=== PATIENT | female | born 1995 | race African-American/Black ===

== ENCOUNTER 2023-04-04 11:42 | Emergency (ER) | payer BC ==
[~2023-04-04] VITALS: Ht 157.5 cm; Wt 86.1 kg
[2023-04-04] MEDS ORDERED: PYRIDOXINE HCL 50MG TABLET PO ONE (12:30)
[2023-04-04] MEDS ORDERED: ONDANSETRON HCL 4MG/2ML INJ IV ONE (12:30)
[2023-04-04] MEDS ORDERED: DEXT 5%/0.9% NACL 1,000 ML IV ONE (12:30)
[2023-04-04 13:26] LABS: BASOPHILS % 0.5 % (0.0-2.0); EOSINOPHILS % 0.8 % (0.0-5.0); HEMOGLOBIN. 12.3 g/dL (12.0-16.0); MEAN CORPUSCULAR HEMOGLOBIN 25.8 pg (28.0-32.0); MEAN CORPUSCULAR VOLUME 77.5 fL (81.0-99.0); MEAN PLATELET VOLUME 10.1 fl (7.4-10.4); MONOCYTES % 5.8 % (2.0-8.0); NEUTROPHILS % 75.9 % (40.0-76.0); PLATELET 208 x1000/uL (130-400); RED BLOOD CELL COUNT 4.78 mill/uL (4.2-5.4); RED CELL DISTRIBUTION WIDTH 20.8 % (11.6-14.6)
[2023-04-04 13:43] LABS: CHLORIDE 102 mEq/L (98-107)
[2023-04-04 13:46] LABS: CLARITY URINE CLOUDY (CLEAR); COLOR URINE DARK YELLOW (YELLOW); KETONES URINE 3+ (NEGATIVE); LEUKOCYTE ESTERASE URINE 1+ (NEGATIVE); NITRITE URINE NEGATIVE (NEGATIVE); OCCULT BLOOD URINE NEGATIVE (NEGATIVE); PH URINE 5.5 (4.5-8.0); PROTEIN URINE 1+ (NEGATIVE); SPECIFIC GRAVITY URINE 1.036 (1.005-1.030)
[2023-04-04 14:07] LABS: B-HCG QUANTITATIVE 180454 mIU/mL (<3); BETA HYDROXYBUTYRATE 0.5 mMol/L (0.0-0.3)
[2023-04-04 15:13] LABS: INR 1.2; PROTHROMBIN TIME 12.4 sec (9.6-11.0)
[2023-04-04] MEDS ORDERED: PYRI25TA4 MT (16:42)
[2023-04-04 16:59] VITALS: BP 120/85
== END 2023-04-04 17:01 | disposition home or self-care (01) ==
LOC: ER 11:42
DX: O26.891 Other specified pregnancy related conditions, first trimester (principal); R11.2 Nausea with vomiting, unspecified; Z3A.01 Less than 8 weeks gestation of pregnancy
CPT/HCPCS: 36415; 76801; 76817; 80053; 81003; 81025; 82010; 83690; 84702; 85025; 85610; 96361; 96374; 99285; J2405; J7042; Z7610